=== PATIENT | female | born 1960 ===

== ENCOUNTER 2017-08-04 05:52 | Emergency (ER) | payer MEDICARE, MEDICAID ==
--- NOTE | 2017-08-04 06:22 | C.PDOC ---
History Of Present Illness The patient presents to the ED for evaluation of flu-like symptoms, generalized body aches, and non-productive cough which began around 2 weeks ago. Patient is tolerant of PO intake and denies fever, chills, nausea, and vomiting at this time. Time Seen by Provider: 08/04/17 06:21 Chief Complaint (Nursing): Flu-like Symptoms History Per: Patient History/Exam Limitations: no limitations Onset/Duration Of Symptoms: Other (2 weeks ) Current Symptoms Are (Timing): Still Present Location Of Pain: Diffuse Myalgias Sick Contacts (Context): None Associated Symptoms: Cough. denies: Fever, Chills, Sputum, Nausea, Vomiting Ear Symptoms: Bilateral: None Severity: Mild Pain Scale Rating Of: 2 Recent travel outside of the [place]: No Additional History Per: Patient Past Medical History Reviewed: Historical Data, Nursing Documentation, Vital Signs Vital Signs: Last Vital Signs Temp 98.3 F 08/04/17 06:03 Pulse 110 H 08/04/17 06:03 Resp 20 08/04/17 06:03 BP 136/80 08/04/17 06:03 Pulse Ox 98 08/04/17 06:37 - Medical History PMH: Anxiety, Bipolar Disorder, Cardia Arrhythmia, COPD, Depression, Diabetes, HTN, Hypercholesterolemia, Rheumatoid Arthritis, Seizures Denies: HIV, Chronic Kidney Disease Surgical History: Cholecystectomy, Pacemaker Denies: CABG - [facility] Procedures EXTRACTION OF ENDOMETRIUM, VIA OPENING, DIAGN (12/19/16) GROUP PSYCHOTHERAPY (12/19/16) Family History: States: Diabetes - Social History Hx Alcohol Use: No Hx Substance Use: Yes (denies this visit) - Immunization History Hx Influenza Vaccination: Yes Hx Pneumococcal Vaccination: Yes Review Of Systems Constitutional: Negative for: Fever, Chills ENT: Negative for: Throat Pain Cardiovascular: Negative for: Chest Pain, Palpitations Respiratory: Positive for: Cough. Negative for: Shortness of Breath, Sputum Gastrointestinal: Negative for: Nausea, Vomiting, Abdominal Pain, Diarrhea, Constipation Musculoskeletal: Positive for: Other (generalized body aches ) Skin: Negative for: Rash, Lesions, Jaundice, Bruising Neurological: Negative for: Weakness, Numbness Physical Exam - Physical Exam Appears: Non-toxic, No Acute Distress Skin: Warm, Dry Head: Normacephalic Eye(s): bilateral: Normal Inspection Ear(s): Bilateral: Normal Nose: Other (erythematous nares with clear secretions ) Oral Mucosa: Moist Throat: No Erythema, No Exudate, Other (oropharynx clear ) Neck: Supple Chest: Symmetrical, No Deformity, No Tenderness Cardiovascular: Rhythm Regular, No Murmur Respiratory: No Rales, No Rhonchi, No Wheezing, Other (speaking in complete sentences ) Gastrointestinal/Abdominal: Other (morbidly obese ) Extremity: Normal ROM Neurological/Psych: Oriented x3 Gait: Steady ED Course And Treatment O2 Sat by Pulse Oximetry: 98 (on RA) Pulse Ox Interpretation: Normal Progress Note: Influenza A/B test ordered and reviewed. Disposition Counseled Patient/Family Regarding: Studies Performed, Diagnosis - Disposition Disposition Time: 06:22 Condition: FAIR Forms: [facility] (Iraqi) - Clinical Impression Clinical Impression: URI (upper respiratory infection) - Scribe Statement The provider has reviewed the documentation as recorded by the Scribe (Valery Reyes) Provider Attestation: All medical record entries made by the Scribe were at my direction and personally dictated by me. I have reviewed the chart and agree that the record accurately reflects my personal performance of the history, physical exam, medical decision making, and the department course for this patient. I have also personally directed, reviewed, and agree with the discharge instructions and disposition. Physician Patient Turnover Patient Signed Over To: Abhijeet Christian Handoff Comments: pending test reults , re-eval and dispostion
[2017-08-04 07:22] VITALS: BP 134/78; PULSE 98; RESP 18; TEMP 98.7; O2SAT 99
== END 2017-08-04 07:21 | disposition home or self-care (01) ==
LOC: C.ER 05:52
DX: J06.9 Acute upper respiratory infection, unspecified (principal); Z87.891 Personal history of nicotine dependence; E11.9 Type 2 diabetes mellitus without complications

== ENCOUNTER 2018-06-23 08:06 | Emergency (ER) | payer MEDICARE, MEDICAID ==
[2018-06-23 08:37] VITALS: RESP 18
--- NOTE | 2018-06-23 08:51 | C.PDOC ---
Addendum entered and electronically signed by Leslye Yusuf PA 06/24/18 16:03: Addendum Addendum: On re-exam, the patient reports improvement of symptoms. The patient is ambulatory in the ED with steady gait. Results were discussed with the patient and she was instructed to follow up for further evaluation. Original Note: History Of Present Illness 58 years old female with PMHx Colorectal polyp(30 years ago), rheumatoid arthritis, pacemaker, and hypoglycemia, presents to ED for complaints of right hip pain that radiates to lower right extremity s/p fall last week. Patient states symptoms are the same to when she had a similar fall in 2010 and her hip broke. Patient also reports she was at [facility] on Monday for rectal bleeding and but currently states bleeding is less. Patient also states she saw her PMD yesterday and was advised to come to ER. Patient reports taking percocet yesterday with no relief. Denies any other complaints. Time Seen by Provider: 06/23/18 08:24 Chief Complaint (Nursing): Lower Extremity Problem/Injury History Per: Patient History/Exam Limitations: no limitations Onset/Duration Of Symptoms: Days (7) Current Symptoms Are (Timing): Still Present Recent travel outside of the [place]: No - Hip Description Of Injury: Fell, Tripped Past Medical History Reviewed: Historical Data, Nursing Documentation, Vital Signs Vital Signs: Last Vital Signs Temp 97.8 F 06/23/18 08:24 Pulse 83 06/23/18 08:24 Resp 18 06/23/18 08:24 BP 137/78 06/23/18 08:24 Pulse Ox 97 06/23/18 08:24 - Medical History PMH: Anxiety, Asthma, Bipolar Disorder, Cardia Arrhythmia, COPD, Depression, Diabetes, Fibromyalgia, HTN, Hypercholesterolemia, Rheumatoid Arthritis, Seizures Surgical History: Cholecystectomy, Pacemaker Denies: CABG - [facility] Procedures EXTRACTION OF ENDOMETRIUM, VIA OPENING, DIAGN (12/19/16) GROUP PSYCHOTHERAPY (08/14/17) INDIVIDUAL PSYCHOTHERAPY, BEHAVIORAL (08/14/17) Family History: States: Unknown Family Hx, Diabetes - Social History Hx Alcohol Use: No Hx Substance Use: No - Immunization History Hx Tetanus Toxoid Vaccination: No Hx Influenza Vaccination: No Hx Pneumococcal Vaccination: Yes Review Of Systems Constitutional: Negative for: Fever, Chills Gastrointestinal: Negative for: Nausea, Vomiting, Abdominal Pain, Diarrhea Genitourinary: Negative for: Incontinence Musculoskeletal: Positive for: Other (Right Hip pain ) Skin: Negative for: Rash Neurological: Negative for: Weakness, Numbness Physical Exam - Physical Exam Appears: Non-toxic, No Acute Distress, Other (Uncomfortable ) Skin: Normal Color, Warm, Dry, No Rash Head: Atraumatic, Normacephalic Eye(s): bilateral: Normal Inspection, PERRL, EOMI Oral Mucosa: Moist Neck: Normal ROM, Supple Chest: Symmetrical, No Tenderness Cardiovascular: Rhythm Regular, No Murmur Respiratory: Normal Breath Sounds, No Decreased Breath Sounds, No Rales, No Rhonchi, No Wheezing Gastrointestinal/Abdominal: Bowel Sounds (Active ), Soft, No Tenderness, No Distention Back: Other (Right paralumbar tenderness. Mild Tenderness to Right Hip. ) Extremity: Normal ROM (Normal Motor. Normal Sensation. ) Extremity: Bilateral: Atraumatic, Normal Color And Temperature, Normal ROM Pulses: Left Radial: Normal, Right Radial: Normal Neurological/Psych: Oriented x3, Normal Speech, Normal Motor, Normal Sensation, Other (No focal Deficits ) Gait: Steady ED Course And Treatment - Laboratory Results Result Diagrams: 06/23/18 09:28 06/23/18 09:28 O2 Sat by Pulse Oximetry: 97 (RA) Pulse Ox Interpretation: Normal - Other Rad Hip/Pelvis X-Ray X-Ray: Viewed By Me, Read By Radiologist Interpretation: Date of service: 06/23/2018. PROCEDURE: RIGHT HIP WITH PELVIS RADIOGRAPHS. HISTORY: fall hip pain,. COMPARISON: None available. TECHNIQUE: Frontal views of the pelvis have been submitted with frog-leg lateral view right hip. FINDINGS: No acute fracture dislocation right hip joint with the pelvic ring appearing intact as well. No destructive bony lesion appreciated throughout. Degenerative sacroiliac and hip joint changes are identified with pubic symphysis intact swells remaining pubic bony anatomy. Iliac bones appear unremarkable as the sacrum as imaged. Incidental degenerative disc disease seen at the inferior lumbar spine. Soft tissue calcification identified in the inferior pelvis toward the left. IMPRESSION: No acute fracture or dislocation right hip joint with the pelvic ring grossly intact. Degenerative sacroiliac and hip joint changes are identified bilaterally. Lumbar Spine X-Ray X-Ray: Viewed By Me, Read By Radiologist Interpretation: Date of service: 06/23/2018. PROCEDURE: Radiographs of the Lumbar Spine. HISTORY: fall, back pain. COMPARISON: No prior. FINDINGS: BONES: Normal lumbar curvature is appreciated. There is no definite lumbar fracture or spondylolisthesis appreciated. Limited wedging of the T12 vertebral body is suggested anteriorly may reflect limited anterior wedge compression fracture of indeterminate age. MRI or bone scan can be utilized for greater characterization. Marked disc height loss seen at L4-5 with accompanying prominent endplate degenerative changes compatible with advanced degenerative disease. Lesser similar changes present at L3-4 and T11-12 incidentally. DISC SPACES: As above. OTHER FINDINGS: None. IMPRESSION: No lumbar fracture or spondylolisthesis identified. Advanced degenerative disc disease identified at the inferior lumbar spine incidentally at the inferior thoracic spine as well. Incidental mild anterior wedging at T12 vertebral body may indicate limited fracture though this is not definite. Clinically correlate further. Please see details above. Medical Decision Making Medical Decision Making: Plan: * Morphine * LS Spine X-Ray * Hip X-Ray * Blood work Disposition - Disposition Referrals: Ag Jacobs MD [Staff Provider] - Disposition: HOME/ ROUTINE Disposition Time: 11:05 Condition: STABLE Additional Instructions: Follow up with the medical doctor within 1-2 days. Return if worsened. Prescriptions: diaZEpam [Valium] 5 mg PO TID #21 tab Naproxen [Naprosyn] 500 mg PO BID #20 tab Instructions: Hip Pain (DC) Forms: [facility] (Lebanese) - Clinical Impression Clinical Impression: Contusion, hip - PA / C[facility]UNCH OPERATOR / Resident Statement MD/DO has reviewed & agrees with the documentation as recorded. - Scribe Statement The provider has reviewed the documentation as recorded by the Magnus Pinon All medical record entries made by the Magnus were at my direction and personally dictated by me. I have reviewed the chart and agree that the record accurately reflects my personal performance of the history, physical exam, medical decision making, and the department course for this patient. I have also personally directed, reviewed, and agree with the discharge instructions and d isposition.
--- NOTE | 2018-06-23 09:39 | RAD ---
Date of service: 06/23/2018 PROCEDURE: RIGHT HIP WITH PELVIS RADIOGRAPHS HISTORY: fall hip pain, COMPARISON: None available. TECHNIQUE: Frontal views of the pelvis have been submitted with frog-leg lateral view right hip. FINDINGS: No acute fracture dislocation right hip joint with the pelvic ring appearing intact as well. No destructive bony lesion appreciated throughout. Degenerative sacroiliac and hip joint changes are identified with pubic symphysis intact swells remaining pubic bony anatomy. Iliac bones appear unremarkable as the sacrum as imaged. Incidental degenerative disc disease seen at the inferior lumbar spine. Soft tissue calcification identified in the inferior pelvis toward the left. IMPRESSION: No acute fracture or dislocation right hip joint with the pelvic ring grossly intact. Degenerative sacroiliac and hip joint changes are identified bilaterally.
[2018-06-23 09:40] LABS: BASO # 0.1 K/uL (0.0-0.2); BASO % 0.6 % (0.0-2.0); EOS # 0.1 K/uL (0.0-0.7); HEMOGLOBIN 12.9 g/dL (11.0-16.0); LYMPH # 2.9 K/uL (1.0-4.3); LYMPH % 28.1 % (20.0-40.0); MEAN CORPUSCULAR HEMOGLOBIN 26.7 pg (27.0-31.0); MEAN PLATELET VOLUME 8.7 fL (7.2-11.7); MONO # 0.5 K/uL (0.0-0.8); MONO % 4.3 % (0.0-10.0); NEUT # 6.9 K/uL (1.8-7.0); NRBC % 0.1 % (0.0-2.0); RBC 4.84 Mil/uL (3.80-5.20); RED CELL DISTRIBUTION WIDTH 14.6 % (11.5-14.5); WHITE BLOOD COUNT 10.5 K/uL (4.8-10.8)
[2018-06-23 09:52] LABS: ALB/GLOB RATIO 1.3 (1.0-2.1); ALBUMIN 4.6 g/dL (3.5-5.0); ALT/SGPT 22 U/L (9-52); AST/SGOT 26 U/L (14-36); BLOOD UREA NITROGEN 14 mg/dL (7-17); CALCIUM 9.8 mg/dl (8.6-10.4); GFR NON-AFRICAN AMERICAN > 60
--- NOTE | 2018-06-23 09:57 | RAD ---
Date of service: 06/23/2018 PROCEDURE: Radiographs of the Lumbar Spine. HISTORY: fall, back pain COMPARISON: No prior. FINDINGS: BONES: Normal lumbar curvature is appreciated. There is no definite lumbar fracture or spondylolisthesis appreciated. Limited wedging of the T12 vertebral body is suggested anteriorly may reflect limited anterior wedge compression fracture of indeterminate age. MRI or bone scan can be utilized for greater characterization. Marked disc height loss seen at L4-5 with accompanying prominent endplate degenerative changes compatible with advanced degenerative disease. Lesser similar changes present at L3-4 and T11-12 incidentally. DISC SPACES: As above. OTHER FINDINGS: None. IMPRESSION: No lumbar fracture or spondylolisthesis identified. Advanced degenerative disc disease identified at the inferior lumbar spine incidentally at the inferior thoracic spine as well. Incidental mild anterior wedging at T12 vertebral body may indicate limited fracture though this is not definite. Clinically correlate further. Please see details above.
[2018-06-23 12:09] VITALS: BP 128/74; PULSE 76; TEMP 97.9; O2SAT 93
== END 2018-06-23 12:14 | disposition home or self-care (01) ==
LOC: C.ER 08:06
DX: S70.01XA Contusion of right hip, initial encounter (principal); W01.0XXA Fall on same level from slipping, tripping and stumbling without subsequent striking against object, initial encounter
CPT/HCPCS: 72100; 73502; 80053; 85025; 96372; 96374; 99284; J1885; J2270

== ENCOUNTER 2018-10-16 11:02 | Outpatient (CLI) | payer MEDICARE, MEDICAID | END 2018-10-16 11:03 | disposition home or self-care (01) | LOC: C.RADIC 11:02 | DX: M54.16 Radiculopathy, lumbar region (principal) ==